=== PATIENT | male | born 1995 | race Caucasian/White ===

== ENCOUNTER 2020-11-08 22:43 | Emergency (ER) | payer OTHER ==
[~2020-11-08] VITALS: Ht 165.1 cm; Wt 86.2 kg
--- NOTE | 2020-11-08 23:50 | NUR ---
TO ER BED 11 AMBULATORY BIB SELF C/O RIGHT HAND PAIN AND SWELLING SINCE SATURDAY S/P METAL PIECE OF FALLING ON R HAND. PT AAOX4 NO ACUTE DISTRESS NOTED, RESP EVEN AND UNLABORED. PENDING ER MD FLANNERY.
[2020-11-09] MEDS ORDERED: PIPERACILLIN /TAZOBACTAM 3.375 G in IV D5W 50 ML IV ONE (00:30)
[2020-11-09] MEDS ORDERED: VANCOMYCIN 1 GM in IV D5W 250 ML IV ONE (00:30)
[2020-11-09] MEDS ORDERED: VANCOMYCIN 1 GM VIAL ONE (00:39)
[2020-11-09] MEDS ORDERED: PIPERACILLIN /TAZOBACTAM 3.375 G VIAL IV ONE (00:39)
[2020-11-09 00:46] LABS: BASOPHILS # (AUTO) 0.1 /CMM (0.0-0.2); BASOPHILS % (AUTO) 0.7 % (0.0-2.0); EOSINOPHILS % (AUTO) 1.2 % (0.0-6.0); HEMATOCRIT 44 % (39-51); HEMOGLOBIN 14.7 g/dL (13.5-17.5); LYMPHOCYTES # (AUTO) 2.6 /CMM (0.8-4.8); LYMPHOCYTES % (AUTO) 17.1 % (20.0-44.0); MEAN CORPUSCULAR HGB CONC 34 g/dl (31.0-36.0); MEAN CORPUSCULAR VOLUME 92 fL (80-96); MONOCYTES # (AUTO) 1.3 /CMM (0.1-1.30); MONOCYTES % (AUTO) 8.5 % (2.0-12.0); NEUTROPHILS # (AUTO) 10.9 /CMM (1.8-8.9); NEUTROPHILS % (AUTO) 72.5 % (43.0-81.0); PLATELET COUNT (AUTO) 298 /CMM (150-450); RED BLOOD CELL COUNT(AUTO) 4.74 MIL/uL (4.5-6.0)
--- NOTE | 2020-11-09 00:52 | NUR ---
COVID SWAB COLLECTED AND SENT TO LAB.
--- NOTE | 2020-11-09 01:29 | NUR ---
LAB CALLED REGARDING NEGATIVE COVID RESULT.
--- NOTE | 2020-11-09 01:47 | NUR ---
[facility] NUMBER [phone]
[2020-11-09 02:53] LABS: CALCIUM, SERUM 8.7 mg/dL (8.5-10.1); CARBON DIOXIDE 26 mmol/L (21-32); CHLORIDE 102 mmol/L (98-107); CREATININE 1.2 mg/dL (0.6-1.3); GLUCOSE 115 mg/dL (74-106); SODIUM SERUM 139 mmol/L (136-145); UREA NITROGEN, BLOOD 12 mg/dL (7-18)
[2020-11-09 02:57] LABS: ALANINE AMINOTRANSFERASE 48 U/L (12-78); ALKALINE PHOSPHATASE 115 U/L (46-116); ASPARTATE AMINOTRANSFERASE 22 U/L (15-37); BILIRUBIN,DIRECT 0.1 mg/dL (0.0-0.2); BILIRUBIN,TOTAL 0.4 mg/dL (0.2-1.0); TOTAL PROTEIN, SERUM 7.7 g/dL (6.4-8.2)
--- NOTE | 2020-11-09 03:20 | NUR ---
Maurilio pinon in ED - 11/09/20 at 0354 by MEGHAN TRANSFER INFORMATION: PT ACCEPTED AT [facility] ACCEPTING MD WILKINSON PHONE # FORE REPORT PT WILL GO TO UNIT 2
--- NOTE | 2020-11-09 03:20 | NUR ---
TRANSFER INFORMATION: PT ACCEPTED AT [facility] ACCEPTING MD WILKINSON PHONE # FOR REPORT PT WILL GO TO [address] [place] [address]
--- NOTE | 2020-11-09 03:24 | NUR ---
tranportation auth number: [id number]
--- NOTE | 2020-11-09 03:46 | NUR ---
[facility] ETA BEFORE 0506
--- NOTE | 2020-11-09 03:58 | NUR ---
REPORT CALLED TO [facility] ARTURO DAVIS. AWAITING TRANSPORT.
--- NOTE | 2020-11-09 04:44 | NUR ---
TRANSPORT AT [facility] REPORT GIVEN TO EMT.
[2020-11-09 04:46] VITALS: BP 133/88
== END 2020-11-09 04:50 | disposition short-term general hospital (02) ==
LOC: ER 22:47
DX: L03.113 Cellulitis of right upper limb (principal); S69.91XS Unspecified injury of right wrist, hand and finger(s), sequela; W20.8XXS Other cause of strike by thrown, projected or falling object, sequela; R50.9 Fever, unspecified; Z20.822 Contact with and (suspected) exposure to COVID-19
CPT/HCPCS: 36415; 73130; 80048; 80076; 83605; 84484; 85025; 85730; 87040 ×2; 87426; 96365; 96368; 99285; C9803; J2543 ×2; J3370; J7060